=== PATIENT | male | born 1960 | race African-American/Black ===

== ENCOUNTER 2019-03-27 15:21 | Inpatient (IN) ==
[~2019-03-27 15:21] MED LIST: POTASSIUM CHLORIDE 20 MEQ/SWI 20 MEQ/100 ML IVPB IV SCH
[2019-03-27] MEDS ORDERED: NS 1,000 ML IV PRN (15:36)
--- NOTE | 2019-03-27 15:54 | EKG Report ---
Test Performed on : 03/27/2019 3:49:29 PM Test Reason : stroke like symptoms Blood Pressure : / mmHG Vent. Rate : 146 BPM Atrial Rate : 156 BPM P-R Int : 000 ms QRS Dur : 084 ms QT Int : 288 ms P-R-T Axes : 000 009 060 degrees QTc Int : 448 ms Atrial fibrillation. with rapid ventricular response. Anterior infarct (cited on or before 21-JAN-2018) Abnormal ECG When compared with ECG of 18-NOV-2018 15:05, Atrial fibrillation. has replaced Sinus rhythm. Vent. rate has increased BY [address] now depressed in Lateral leads Nonspecific T wave abnormality, improved in Lateral leads Unconfirmed Result
[2019-03-27] MEDS ORDERED: CARDIZEM IV ONE (15:55)
--- NOTE | 2019-03-27 16:52 | Diag Imaging Result Doc PS360 ---
EXAM: CHEST-PORTABLE HISTORY: stroke like symptoms TECHNIQUE: Single view COMPARISON: 01/21/2018 FINDINGS: The lungs are well expanded. The heart is not enlarged. The vessels are not distended. There are no infiltrates. No effusion identified. IMPRESSION: Negative exam. Electronically signed by Nathaniel Trujillo 03/27/2019 4:49 PM
[2019-03-27 17:07] LABS: INR 2.26; PROTIME 26.3 Seconds (11.0-16.0)
[2019-03-27 17:08] LABS: PTT 49.2 Seconds (22.3-41.8)
[2019-03-27 17:19] LABS: URINE SOURCE CLEAN CATCH
[2019-03-27 17:24] LABS: UR EPITHELIAL CELLS <10 /HPF (<10); URINE BACTERIA NEGATIVE /HPF; URINE RBC <10 /HPF (<10); URINE WBC <10 /HPF (<10)
[2019-03-27 17:31] LABS: INFLUENZA A NEGATIVE (NEGATIVE); INFLUENZA B NEGATIVE (NEGATIVE)
[2019-03-27] MEDS ORDERED: SOLU-MEDROL IV ONE (17:32)
[2019-03-27] MEDS ORDERED: ROCEPHIN 1 GM in NS 50 ML IV ONE (17:32)
[2019-03-27 17:36] LABS: BASO# 0.04 X1000 (0.0-0.2); BASO% 0.2 % (0.0-0.8); EOS% 0.5 % (0.0-10.0); HEMATOCRIT 41.4 % (42.0-52.0); HEMOGLOBIN 13.7 g/dL (14.0-18.0); IMM GRAN# 0.06 X1000 (0.0-0.04); IMM GRAN% 0.3 % (0.0-0.5); LYMPH# 0.98 X1000 (1.2-3.4); LYMPH% 5.3 % (20.5-51.1); MCH 29.5 PG (27-31); MCHC 33.1 g/dL (33-37); MONO# 0.98 X1000 (0.11-0.59); MONO% 5.3 % (1.7-9.3); MPV 11.1 FL (7.4-10.4); NEUT# 16.38 X1000 (1.4-6.5); NEUT% 88.4 % (42.2-75.2); PLT 354 X1000 (130-400); RBC 4.65 XMIL (4.7-6.1); RDW 13.7 % (11.5-14.5); WBC 18.54 X1000 (4.8-10.8)
[2019-03-27 17:37] LABS: COLOR YELLOW; TURBIDITY URINE CLEAR (CLEAR)
[2019-03-27 17:38] LABS: BILIRUBIN URINE NEGATIVE (NEGATIVE); BLOOD URINE NEGATIVE (NEGATIVE); GLUCOSE URINE 70 mg/dL (NEGATIVE); KETONE URINE 80 mg/dL (NEGATIVE); LEUKOCYTES URINE NEGATIVE (NEGATIVE); NITRITE URINE NEGATIVE (NEGATIVE); PH URINE 6.5; PROTEIN URINE 300 mg/dL (NEGATIVE); SP GRAVITY URINE 1.018; UROBILINOGEN URINE NORMAL (NORMAL)
[2019-03-27 17:41] LABS: ESTIMATED GFR > 60
[2019-03-27 17:44] LABS: UR AMPHETAMINES QUAL NONE DETECTED (NONE DETECT); UR BARBITUATES QUAL NONE DETECTED (NONE DETECT); UR BENZODIAZEPIN QUAL NONE DETECTED (NONE DETECT); UR CANNABINOIDS QUAL NONE DETECTED (NONE DETECT); UR COCAINE QUAL NONE DETECTED (NONE DETECT); UR METHADONE QUAL NONE DETECTED (NONE DETECT); UR METHAMPHETAMINE QUAL NONE DETECTED (NONE DETECT); UR OPIATES QUAL PRESUMPTIVE POSITIVE (NONE DETECT); UR OXYCODONE QUAL NONE DETECTED (NONE DETECT); UR PCP QUAL NONE DETECTED (NONE DETECT); UR PROPOXYPHENE QUAL NONE DETECTED (NONE DETECT); UR TCA QUAL NONE DETECTED (NONE DETECT)
[2019-03-27] MEDS ORDERED: POTASSIUM CHLORIDE 10 MEQ/SWI 10 MEQ/100 ML IVPB IV ONE (17:46)
[2019-03-27 17:47] LABS: AGAP 20; ALBUMIN 4.3 g/dL (3.5-5.0); ALKALINE PHOSPHATASE 82 U/L (32-122); BUN 12 mg/dL (8-22); CALCIUM 9.3 mg/dL (8.8-10.2); CHLORIDE 100 mmol/L (98-107); COSMO 293; CREATININE 1.1 mg/dL (0.7-1.2); GLUCOSE 187 mg/dL (70-104); GOT 14 U/L (10-34); GPT 8 U/L (10-44); POTASSIUM 2.4 mmol/L (3.5-5.1); SODIUM 145 mmol/L (136-145); TCO2 24 mmol/L (25-35); TOTAL PROTEIN 7.1 g/dL (6.3-8.3)
[2019-03-27] MEDS ORDERED: KLOR-CON PO ONE (17:48)
[2019-03-27] MEDS ORDERED: ROBITUSSIN-AC PO ONE (18:01)
[2019-03-27] MEDS ORDERED: NS 500 ML ONE (18:19)
[2019-03-27] MEDS ORDERED: NS 500 ML IV ONE (18:21)
--- NOTE | 2019-03-27 18:29 | EKG Report ---
Test Performed on : 03/27/2019 4:08:16 PM Test Reason : repeat Blood Pressure : / mmHG Vent. Rate : 066 BPM Atrial Rate : 066 BPM P-R Int : 152 ms QRS Dur : 092 ms QT Int : 420 ms P-R-T Axes : 035 042 040 degrees QTc Int : 440 ms Normal sinus rhythm. Normal ECG When compared with ECG of 27-MAR-2019 15:49, (Unconfirmed) Sinus rhythm. has replaced Atrial fibrillation. Vent. rate has decreased BY 80 BPM Criteria for Anterior infarct are no longer present ST no longer depressed in Inferior leads Nonspecific T wave abnormality no longer evident in Inferior leads Unconfirmed Result
--- NOTE | 2019-03-27 18:29 | EKG Report ---
Test Performed on : 03/27/2019 5:30:45 PM Test Reason : repeat Blood Pressure : / mmHG Vent. Rate : 114 BPM Atrial Rate : 114 BPM P-R Int : 160 ms QRS Dur : 076 ms QT Int : 340 ms P-R-T Axes : 062 -32 102 degrees QTc Int : 468 ms Sinus tachycardia. Left axis deviation Inferior infarct , age undetermined Anterior infarct , age undetermined Abnormal ECG When compared with ECG of 27-MAR-2019 16:08, (Unconfirmed) Significant changes have occurred Unconfirmed Result
[2019-03-27] MEDS ORDERED: POTASSIUM CHLORIDE 40 MEQ/SWI 40 MEQ/100 ML IVPB IV SCH (20:00)
[2019-03-27] MEDS ORDERED: APRESOLINE IV PRN (20:35)
[2019-03-27] MEDS ORDERED: HUMULIN R (PARKWAY) SUBQ SCH (21:00)
[2019-03-27] MEDS: POTASSIUM CHLORIDE 20 MEQ/SWI 20 MEQ/100 ML IVPB IV SCH (22:36)
[2019-03-27] MEDS ORDERED: PNEUMOVAX 23 IM ONE (23:52)
[2019-03-27] MEDS ORDERED: FLU VACCINE IM ONE (23:52)
[2019-03-28] MEDS: POTASSIUM CHLORIDE 20 MEQ/SWI 20 MEQ/100 ML IVPB IV SCH (00:54)
[2019-03-28 07:55] LABS: BASO# 0.01 X1000 (0.0-0.2); BASO% 0.1 % (0.0-0.8); HEMATOCRIT 38.7 % (42.0-52.0); HEMOGLOBIN 12.7 g/dL (14.0-18.0); IMM GRAN# 0.01 X1000 (0.0-0.04); IMM GRAN% 0.1 % (0.0-0.5); MCH 29.6 PG (27-31); MCHC 32.8 g/dL (33-37); MCV 90.2 FL (81-99); MONO% 2.3 % (1.7-9.3); MPV 11.5 FL (7.4-10.4); NEUT# 7.81 X1000 (1.4-6.5); NEUT% 89.5 % (42.2-75.2); PLT 278 X1000 (130-400); RBC 4.29 XMIL (4.7-6.1); RDW 13.9 % (11.5-14.5); WBC 8.73 X1000 (4.8-10.8)
[2019-03-28 08:10] LABS: AGAP 13; BUN 17 mg/dL (8-22); CALCIUM 8.8 mg/dL (8.8-10.2); CHLORIDE 104 mmol/L (98-107); COSMO 292; ESTIMATED GFR > 60; GLUCOSE 222 mg/dL (70-104); MAGNESIUM 1.6 mg/dL (1.5-2.7); POTASSIUM 3.3 mmol/L (3.5-5.1); SODIUM 142 mmol/L (136-145); TCO2 25 mmol/L (25-35)
[2019-03-28] MEDS ORDERED: KLOR-CON PO ONE (08:45)
[2019-03-28] MEDS ORDERED: MAGNESIUM SULFATE 1 GM/D5W 1 GM/100 ML IVPB IV ONE (08:46)
[2019-03-28] MEDS ORDERED: TYLENOL PO PRN (08:50)
[2019-03-28] MEDS ORDERED: ZOFRAN IV PRN (08:50)
[2019-03-28] MEDS ORDERED: GLUCOPHAGE PO SCH (09:00)
[2019-03-28] MEDS ORDERED: LOPRESSOR PO SCH (09:00)
[2019-03-28] MEDS ORDERED: POTASSIUM CHLORIDE 20 MEQ/SWI 20 MEQ/100 ML IVPB IV SCH (09:00)
[2019-03-28] MEDS: KLOR-CON PO SCH (09:36)
[2019-03-28] MEDS: HYGROTON PO SCH (09:37)
[2019-03-28] MEDS: PRILOSEC PO SCH (09:37)
[2019-03-28] MEDS: HUMULIN R (PARKWAY) SUBQ SCH ×4 (09:39→23:02)
[2019-03-28 10:23] LABS: HEMOGLOBIN A1C 6.4 % (4.8-6.0)
--- NOTE | 2019-03-28 10:51 | Diag Imaging Result Doc PS360 ---
EXAM: ABDOMEN FLAT/UPRIGHT - 03/28/2019 HISTORY: nausea/vomiting TECHNIQUE: Supine and upright abdomen COMPARISON: None. FINDINGS: There are gas and retained fecal debris visible in mostly nondistended colon. There is gas visible within a couple nondistended to slightly distended small bowel loops on the left. There is no free air identified. IMPRESSION: Nonspecific bowel gas pattern. Electronically signed by Tk Whipple 03/28/2019 10:49 AM
[2019-03-28 10:56] LABS: FREE T4 1.41 ng/dL (0.93-1.70); TSH 0.45 uIUmL (0.27-4.20)
[2019-03-28] MEDS ORDERED: NORCO-7.5 PO PRN (11:02)
[2019-03-28] MEDS: APRESOLINE PO SCH ×2 (13:04→20:43)
--- NOTE | 2019-03-28 16:24 | EKG Report ---
Test Performed on : 03/28/2019 3:27:06 PM Test Reason : reevaluate rym Blood Pressure : / mmHG Vent. Rate : 083 BPM Atrial Rate : 083 BPM P-R Int : 166 ms QRS Dur : 078 ms QT Int : 396 ms P-R-T Axes : 054 030 -34 degrees QTc Int : 465 ms Normal sinus rhythm. Nonspecific T wave abnormality Prolonged QT Abnormal ECG When compared with ECG of 27-MAR-2019 17:30, (Unconfirmed) Criteria for Anterior infarct are no longer present Criteria for Inferior infarct are no longer present ST no longer depressed in Lateral leads T wave inversion now evident in Inferior leads Inverted T waves have replaced nonspecific T wave abnormality in Lateral leads Confirmed by Bala Gasca MD ([id number]) on 04/01/2019 6:31:55 AM
[2019-03-28] MEDS ORDERED: XARELTO PO SCH (17:00)
[2019-03-28] MEDS: BETAPACE PO SCH (20:43)
--- NOTE | 2019-03-28 21:14 | HISTORY AND PHYSICAL ---
PRIMARY CARE PROVIDER: Nba Crum DO CHIEF COMPLAINT: Chest pain. HISTORY OF PRESENT ILLNESS: Mr. Yi Briseno is a 58-year-old male with a medical history of paroxysmal atrial fibrillation. He states that yesterday around 11 a.m. he developed a sudden onset of chest pain, had some nausea and vomiting with it. He presented to the emergency department with these complaints. He was found to be in atrial fibrillation with RVR. He was going to receive Cardizem but the atrial fibrillation with RVR actually resolved. Nausea and vomiting has also improved, but he is hypokalemic with it. White blood cell count went up as well, but that has resolved, too. He states that yesterday morning he took his medications on an empty stomach which include sotalol. He got sick to his stomach and threw up, and it was after that he developed the chest pain. Currently home medications have been reconciled and resumed, including the sotalol. He is not complaining of any nausea. He did state that he had some yellow phlegm, but no fever. Otherwise no other complaint. PAST MEDICAL HISTORY: 1. Hypertension. 2. Diabetes mellitus type 2. 3. GERD. 4. Paroxysmal atrial fibrillation. PAST SURGICAL HISTORY: 1. Appendectomy. 2. Left knee surgery. 3. Bilateral rotator cuff repair. SOCIAL HISTORY: Denies tobacco. He states he drinks alcohol on the weekends, but no illicit drug use. On old records it says he uses marijuana occasionally. He denies this at this time. He lives with his , has adult children. He works for [email or web address]. FAMILY HISTORY: Mother, asthma. Father, no known medical conditions. ALLERGIES: No known drug allergies. HOME MEDICATIONS: 1. Hydralazine 100 mg p.o. twice a day. 2. Chlorthalidone 50 mg p.o. daily. 3. Metformin 1000 mg p.o. twice daily. 4. Hydrocodone 1 tablet p.o. every 4-8 hours p.r.n. 5. Potassium chloride 20 mEq p.o. daily. 6. Sotalol 40 mg p.o. twice daily. 7. Xarelto 20 mg p.o. daily. REVIEW OF SYSTEMS: Fourteen-point review of systems are complete and all were negative except for those mentioned above in HPI. PHYSICAL EXAMINATION: VITAL SIGNS: Temperature 98.3 degrees, heart rate 75, respiratory rate 20, blood pressure 183/95, O2 saturation 98% on room air. GENERAL: Mr. Yi Briseno is a 58-year-old male. He is in no acute distress. He is able to answer questions appropriately. HEENT: Atraumatic, normocephalic. Pupils equal, round and reactive to light. Extraocular movements intact. Mucous membranes are moist. NECK: Trachea midline. CARDIOVASCULAR: S1, S2. Regular rate and rhythm. No rubs, gallops or murmurs. No lower extremity edema. Dorsalis and radial pulses +2. Negative JVD or carotid bruits. PULMONARY: Clear to auscultate, bilateral breath sounds. No accessory muscle use or work of breathing noted. GASTROINTESTINAL: Soft, nontender, nondistended. Positive bowel sounds x4. EXTREMITIES: Moves all extremities equally. Full range of motion. NEUROLOGIC: A and O x3. Follows commands. Sensory is intact. SKIN: Warm, dry, intact. LABORATORY DATA: White blood cells 18,000, now down to 8000. Hemoglobin 12, hematocrit 38, platelet count 278,000. Sodium 142. Initially potassium 2.4, it is up to 3.3. BUN 17, creatinine 1.0, glucose 222. Hemoglobin A1c is 6.4. Calcium 8.8, magnesium 1.6. Bilirubin 0.70, AST 14, ALT 8. Troponin 48. CRP 12. ProBNP 939. Triglycerides 35, total cholesterol 157. TSH 0.45, free T4 is 1.41. Urinalysis: Protein 300, 70 glucose, 80 ketones, otherwise negative. Urine drug screen: Positive opiates. Flu negative. DIAGNOSTIC DATA: Chest x-ray: Negative exam. There are 3 EKGs. These were all from yesterday. First one: Atrial fibrillation with RVR, rate 146. Second one: Normal sinus rhythm, rate 66, QTc is 440. Third one: Sinus tachycardia, rate 114. There were not any EKGs for today. Abdominal x-ray: Nonspecific bowel gas pattern. ASSESSMENT AND PLAN: 1. Atypical chest pain, which was caused from atrial fibrillation with rapid ventricular response. The patient has been resumed on the sotalol. Apparently, he threw up his morning medications and also became hypokalemic, causing him to be more at risk for atrial fibrillation with rapid ventricular response, as he has a history of paroxysmal atrial fibrillation. He has since converted back to normal sinus rhythm. Sotalol continued, Xarelto continued. 2. Hypokalemia. It is improving with potassium supplementation and magnesium supplementation. 3. Hypertension. Home medications resumed. PRN medications ordered. 4. Diabetes mellitus type 2. We will do pattern blood glucoses and sliding scale insulin. 5. Gastroesophageal reflux disease, on Prilosec. 6. Deep venous thrombosis prophylaxis. He is on Xarelto. Dictated by DELANEY Carver for Lokesh Ac MD cc: DELANEY Carver MD
--- NOTE | 2019-03-28 22:37 | HISTORY AND PHYSICAL ---
ADDENDUM: Patient seen and examined by myself. Full note dictated discussed with nurse practitioner. Patient presented to the hospital with chest pain, shortness of breath. He was noted to have a white count elevated at 18. Sodium at 143, potassium low at 2.4. Magnesium also was low. We are going to admit him to the hospital. Replace his electrolytes, follows his heart symptoms. Further orders as needed. Please see full note. cc: Lokesh Ac MD
[2019-03-29] MEDS: PRILOSEC PO SCH ×2 (05:07→08:44)
[2019-03-29 06:16] LABS: BASO# 0.04 X1000 (0.0-0.2); BASO% 0.3 % (0.0-0.8); EOS# 0.11 X1000 (0.0-0.7); EOS% 0.7 % (0.0-10.0); HEMATOCRIT 37.7 % (42.0-52.0); HEMOGLOBIN 11.9 g/dL (14.0-18.0); IMM GRAN# 0.03 X1000 (0.0-0.04); IMM GRAN% 0.2 % (0.0-0.5); LYMPH# 2.35 X1000 (1.2-3.4); LYMPH% 15.1 % (20.5-51.1); MCH 28.5 PG (27-31); MCHC 31.6 g/dL (33-37); MCV 90.2 FL (81-99); MONO% 7.1 % (1.7-9.3); MPV 11.5 FL (7.4-10.4); NEUT# 11.97 X1000 (1.4-6.5); NEUT% 76.6 % (42.2-75.2); PLT 300 X1000 (130-400); RBC 4.18 XMIL (4.7-6.1); RDW 14.1 % (11.5-14.5)
[2019-03-29 06:56] LABS: AGAP 12; ALBUMIN 3.4 g/dL (3.5-5.0); ALKALINE PHOSPHATASE 76 U/L (32-122); BUN 18 mg/dL (8-22); CALCIUM 8.9 mg/dL (8.8-10.2); CHLORIDE 102 mmol/L (98-107); COSMO 286; CREATININE 0.9 mg/dL (0.7-1.2); ESTIMATED GFR > 60; GLUCOSE 152 mg/dL (70-104); GOT 11 U/L (10-34); GPT 6 U/L (10-44); MAGNESIUM 1.7 mg/dL (1.5-2.7); POTASSIUM 2.6 mmol/L (3.5-5.1); SODIUM 141 mmol/L (136-145); TCO2 27 mmol/L (25-35); TOTAL PROTEIN 6.1 g/dL (6.3-8.3)
[2019-03-29] MEDS: HUMULIN R (PARKWAY) SUBQ SCH (08:45)
[2019-03-29] MEDS: APRESOLINE PO SCH (08:46)
[2019-03-29] MEDS: KLOR-CON PO SCH (08:46)
[2019-03-29] MEDS: HYGROTON PO SCH (08:46)
[2019-03-29] MEDS: BETAPACE PO SCH (08:46)
[2019-03-29] MEDS ORDERED: PRINIVIL PO SCH (09:00)
[2019-03-29] MEDS ORDERED: KLOR-CON PO SCH (09:00)
[2019-03-29 09:01] VITALS: BP 176/90
--- NOTE | 2019-03-29 21:49 | DISCHARGE SUMMARY ---
ADMISSION DATE: 03/27/2019 DISCHARGE DATE: 03/29/2019 DISCHARGE DIAGNOSES: 1. Chest pain, resolved. 2. Type 2 diabetes, stable. 3. Leukocytosis, stable. 4. Hypokalemia, improved although it was still 2.6 on discharge. 5. Hypertension. 6. Diabetes. CONSULTATIONS: None. PROCEDURES: None. BRIEF HOSPITAL COURSE: The patient is a 58-year-old male who presented to the hospital with chest pain. Thankfully, he ruled out for an [place]. He was restarted on his home medications. His atrial fibrillation did not have any issues while he was in the hospital. He did have low potassium and an elevated blood pressure for which potassium was added as well as lisinopril was added. On discharge, he is awake, alert. He is in no distress and therefore he will be discharged home. DISPOSITION: Patient will continue his home medications, hydralazine, chlorthalidone, metformin, hydrocodone, potassium, sotalol, Xarelto with the addition of lisinopril 20. He will follow up this week with his primary care to have his labs and blood pressures rechecked. cc: Lokesh Ac MD
== END 2019-03-29 12:13 | disposition home or self-care (01) | DRG 310 ==
LOC: P.ED 15:21 → P.MEDSURG 15:21 → SUATTDRO 19:39 → OBSVTOIN 19:39
PROVIDERS: ATTEND Family Medicine

== ENCOUNTER 2019-05-02 22:47 | Inpatient (IN) ==
[2019-05-02] MEDS ORDERED: CARDIZEM IV ONE ×2 (22:49→23:43)
[2019-05-02 23:40] LABS: BASO# 0.03 X1000 (0.0-0.2); BASO% 0.3 % (0.0-0.8); EOS# 0.22 X1000 (0.0-0.7); EOS% 2.2 % (0.0-10.0); HEMATOCRIT 39.5 % (42.0-52.0); HEMOGLOBIN 12.7 g/dL (14.0-18.0); IMM GRAN# 0.01 X1000 (0.0-0.04); IMM GRAN% 0.1 % (0.0-0.5); LYMPH# 1.31 X1000 (1.2-3.4); MCH 28.6 PG (27-31); MCHC 32.2 g/dL (33-37); MONO# 0.93 X1000 (0.11-0.59); MONO% 9.2 % (1.7-9.3); MPV 11.3 FL (7.4-10.4); NEUT# 7.58 X1000 (1.4-6.5); NEUT% 75.2 % (42.2-75.2); PLT 349 X1000 (130-400); RBC 4.44 XMIL (4.7-6.1); RDW 13.5 % (11.5-14.5); WBC 10.08 X1000 (4.8-10.8)
--- NOTE | 2019-05-02 23:40 | PROVIDER DOCUMENTATION ---
This chart was entered by Lilly Muniz Scribe, acting as scribe for Eliel Rdz MD. HPI-Chest Pain - General Stated Complaint: tachycardia Time Seen by Provider: 05/02/19 22:47 Source: patient, EMS Allergies/Adverse Reactions: Patient Allergies Allergy/AdvReac Type Severity Reaction Status Date / Time No Known Allergies Allergy Verified 03/27/19 16:35 Home Medications: Home Medication List Medication Instructions Recorded Confirmed Last Taken Type Chlorthalidone 50 mg PO DAILY 11/18/18 03/27/19 01/14/19 08:30 History Hydralazine [Apresoline] 100 mg PO BID 11/18/18 03/28/19 01/14/19 08:30 History Metformin [Glucophage] 1,000 mg PO BID 11/18/18 03/27/19 01/14/19 08:30 History Potassium Chloride E.r. 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 pt sts these symptoms have happened previously. pt has hx of afib w/rvr. Severity in ED: moderate Onset/Duration: just prior to arrival, 1/2 hour ago Timing: still present Context/Activities at Onset: reports: none Modifying Factors: improves with: nothing Associated Symptoms: reports: denies symptoms Similar Symptoms Previously?: Yes Review of Systems - Adult - REVIEW OF SYSTEMS - ADULT Constitutional: reports: no symptoms reported. denies: fever, fatique, night sweats Eyes: reports: no symptoms reported Ears, Nose, Mouth & Throat: reports: no symptoms reported Cardiovascular: reports: see HPI, chest pain, irregular heart rate. denies: heart murmur, poor circulation, syncope Respiratory: reports: no symptoms reported Gastrointestinal: reports: no symptoms reported Genitourinary: reports: no symptoms reported Musculoskeletal: reports: no symptoms reported Integumentary: reports: no symptoms reported Neurological: reports: no symptoms reported Psychiatric: reports: no symptoms reported Endocrine: reports: no symptoms reported Hematologic/Lymphatic: reports: no symptoms reported Allergic/Immunologic: reports: no symptoms reported All Other Systems: Reviewed and Negative Past History - Adult - PAST MEDICAL HISTORY-ADULT Review of Records: reports: Nursing Assessment Review, Medications Reviewed, Social history reviewed & non-contributory. Major Childhood Illnesses: reports: denies history Cardiovascular: reports: A-Fib, HTN Respiratory: reports: denies history Gastrointestinal: reports: denies history Obstetrical/Gynecological: reports: denies history Genitourinary: reports: denies history Musculoskeletal: reports: denies history Neurological: reports: denies history Endocrine/Immune: reports: Diabetes Other Conditions: reports: denies history - PRIOR SURGERIES/PROCEDURES Surgical/Procedure History: reports: joint replacement, other - IMMUNIZATION STATUS Childhood Immunizations: See Nurse Assessment Flu Vaccine: See Nurse Assessment - FAMILY HISTORY Family History: reviewed, not pertinent - SOCIAL HISTORY Smoking: non-smoker Substance Use: alcohol Physical Exam-General - PHYSICAL EXAM-ADULT Initial Vital Signs Reviewed: Yes - CONSTITUTIONAL General Appearance: alert, mild distress, obese. negative: cachetic, lethargic, slow to respond - EYES Eyes: PERRL/EOMI - HEAD, EARS, NOSE, MOUTH & THROAT HENMT: normocephalic/atraumatic, moist mucous membranes - NECK Neck: non-tender, full range of motion, supple, normal inspection - RESPIRATORY Respiratory: chest non-tender, lungs clear, normal breath sounds - CARDIOVASCULAR Cardiovascular: no edema, no gallop, no JVD, no murmur, tachycardia, irregularly irregular. negative: regular rate, rhythm, bradycardia, extra beats, friction rub - GASTROINTESTINAL (ABDOMEN) Abdominal Exam: normal bowel sounds, non tender, soft - MUSCULOSKELETAL Back Exam: normal inspection Extremity: normal range of motion, non-tender, normal inspection - SKIN Integumentary: normal color, normal turgor, warm/dry - NEUROLOGIC Neurologic: grossly normal, no motor/sensory deficits - PSYCHIATRIC Psych/Mental Status: normal mood/affect, normal thought content, normal thought process, oriented x 3 Progress - PLAN OF CARE/RESULTS Progress/Plan/Lab Results: Vital Signs - 8 hr 05/02/19 22:53 05/02/19 23:01 05/03/19 00:00 Temperature 98.4 F Pulse Rate 178 H 102 H 156 H Respiratory Rate 20 20 20 Blood Pressure 169/135 180/93 156/78 O2 Sat by Pulse Oximetry 100 99 100 Laboratory Results - last 24 hr 05/02/19 05/02/19 05/02/19 23:16 23:16 23:16 WBC 10.08 RBC 4.44 L Hgb 12.7 L Hct 39.5 L MCV 89.0 MCH 28.6 MCHC 32.2 L RDW Std Deviation 13.5 Plt Count 349 MPV 11.3 H Immature Gran % (Auto) 0.1 Neut % (Auto) 75.2 Lymph % (Auto) 13.0 L [place] % (Auto) 9.2 Eos % (Auto) 2.2 Baso % (Auto) 0.3 Immature Gran # (Auto) 0.01 Neut # (Auto) 7.58 H Lymph # (Auto) 1.31 [place] # (Auto) 0.93 H Eos # (Auto) 0.22 Baso # (Auto) 0.03 Sodium 145 Potassium 2.9 L Chloride 105 Carbon Dioxide 24 L Anion Gap 16 BUN 14 Creatinine 0.9 Estimated GFR/1.73 m2 > 60 BUN/Creatinine Ratio 16 Glucose 202 H Calculated Osmolality 295 Calcium 9.3 Magnesium Total Bilirubin 0.20 AST 10 ALT 7 L Alkaline Phosphatase 97 Creatine Kinase 73 Troponin T High Sens Total Protein 6.9 Albumin 4.1 Globulin 3.0 Albumin/Globulin Ratio 1.0 05/02/19 05/02/19 23:16 23:16 WBC RBC Hgb Hct MCV MCH MCHC RDW Std Deviation Plt Count MPV Immature Gran % (Auto) Neut % (Auto) Lymph % (Auto) [place] % (Auto) Eos % (Auto) Baso % (Auto) Immature Gran # (Auto) Neut # (Auto) Lymph # (Auto) [place] # (Auto) Eos # (Auto) Baso # (Auto) Sodium Potassium Chloride Carbon Dioxide Anion Gap BUN Creatinine Estimated GFR/1.73 m2 BUN/Creatinine Ratio Glucose Calculated Osmolality Calcium Magnesium 1.9 Total Bilirubin AST ALT Alkaline Phosphatase Creatine Kinase Troponin T High Sens 27 H Total Protein Albumin Globulin Albumin/Globulin Ratio Orders Category Date Time Status Admit - [facility] Routine AdmDCTranf 05/03/19 00:28 Active Cardiac Monitoring DIRECTED Care 05/02/19 22:48 Active Resuscitation Status Routine Care 05/03/19 00:29 Ordered Saline Loc DIRECTED Care 05/03/19 00:29 Active Vital Signs Order Q 4-HR ASSESS Care 05/03/19 00:29 Active Z-Document. for Tele Applied ORDERED Care 05/03/19 00:29 Active NPO Diet 05/03/19 00:30 Active CHEST-PORTABLE [RAD] Stat Exams 05/02/19 22:49 Taken CBC WITH ELECTRONIC DIFF [HEME] Stat Lab 05/02/19 23:16 Completed CK PROFILE [SP CHEM] Stat Lab 05/02/19 23:16 Completed CMP [COMPREHENSIVE METABOLIC PANEL] [CHEM] Stat Lab 05/02/19 23:16 Completed MAGNESIUM [CHEM] Stat Lab 05/02/19 23:16 Completed TROPONIN T HIGH SENSITIVITY Stat Lab 05/02/19 23:16 Completed 0.9% Sodium Chloride Inj [Ns] 1,000 ml Med 05/03/19 00:29 Active IV 100 mls/hr Diltiazem 100 mg/Ns [Cardizem 100 mg/Ns] Med 05/02/19 23:45 Active 100 mg in 100 ml IV As Directed mls/hr Diltiazem [Cardizem] Med 05/02/19 23:43 Discontinued 10 mg IV NOW ONE Diltiazem [Cardizem] Med 05/02/19 22:49 Discontinued 15 mg IV NOW ONE Potassium Chloride 20 Meq/Swi Med 05/03/19 00:04 Active 20 meq in 100 ml IV ONCE Oxygen Device Stat Oth 05/02/19 22:49 Active Telemetry [OM.EQ] Routine Oth 05/03/19 00:29 Active EKG [EKG] Stat Ther 05/02/19 22:48 Ordered Transfer/Admit Order [TRANSFER] Routine Transfer 05/03/19 00:31 Ordered Result Diagrams: 05/02/19 23:16 05/02/19 23:16 - REASSESSMENT Reassessment #1 Time Reassessed: 23:15 Status: improving Reassessment Comment: heart rate has normalized Reassessment #2 Time Reassessed: 23:45 Status: worsening Reassessment Comment: heart rate is now over 130, 10mg IV cardizem drip ordered - EKG 1 Time of EKG reading by physician:: 22:53 EKG Read and Signed by:: Eliel Rdz EKG Interpretation (*Must complete 3 of following elements*): Abnormal Rate: 172 Rhythm: SVT [place]: normal QRS: normal ST Wave: non-specific ST changes (ST & T wave abn) 2 Time of EKG reading by physician:: 22:58 EKG Read and Signed by:: Eliel Rdz EKG Interpretation (*Must complete 3 of following elements*): Abnormal Rate: 99 Rhythm: arib w/ PVC or PACs [place]: normal QRS: normal [place] Interval: normal ST Wave: normal Comments: poss anterior infarct, age undetermined - CONSULTS/PCP/HOSPITALIST Notification #1 *Consult/PCP/Hospitalist*: Dr. Ac Time Discussed: 00:06 Reason/Comments: admit to ICU at [facility], patient requires cardizem drip Consult Disposition: Admit #2 Consult: Dr. Caraballo, hospitalist Reason/Comments: admit to PVC Consult Disposition: Admit Departure - Departure Date of Disposition Decision: 05/03/19 Time of Disposition Decision: 00:05 DIAGNOSIS: Atrial fibrillation with RVR, Hypokalemia Disposition: ADMITTED INPATIENT 09 Certified Medical Emergency: Emergent Condition: Stable Referrals and Follow-Ups: None,PCP [Primary Care Provider] - - Critical Care Note This patient required my direct & personal management of CC.: Yes Attestation - Physician/ RAI Attestation Patient care was provided by Advanced Practice Provider:: No The physician spent face to face time with patient:: Yes Advanced Practice Provider documentation review:: Supervising physician onsite and consulted in the evaluation and care of this patient. The physician did have a face to face encounter with the patient. This chart was documented by the indicated scribe, (Lilly Muniz Scribe) and accurately reflects the services I performed and decisions made by me, Eliel Rdz MD, as attested by the provider's signature.
[2019-05-02] MEDS ORDERED: CARDIZEM 100 MG/NS 100 MG/100 ML IVPB IV SCH (23:45)
[2019-05-02 23:51] LABS: AGAP 16; ALBUMIN 4.1 g/dL (3.5-5.0); ALKALINE PHOSPHATASE 97 U/L (32-122); BUN 14 mg/dL (8-22); CALCIUM 9.3 mg/dL (8.8-10.2); CHLORIDE 105 mmol/L (98-107); COSMO 295; CREATININE 0.9 mg/dL (0.7-1.2); ESTIMATED GFR > 60; GLUCOSE 202 mg/dL (70-104); GOT 10 U/L (10-34); GPT 7 U/L (10-44); POTASSIUM 2.9 mmol/L (3.5-5.1); SODIUM 145 mmol/L (136-145); TCO2 24 mmol/L (25-35); TOTAL PROTEIN 6.9 g/dL (6.3-8.3)
[2019-05-03] MEDS ORDERED: POTASSIUM CHLORIDE 20 MEQ/SWI 20 MEQ/100 ML IVPB IV ONE (00:04)
[2019-05-03] MEDS ORDERED: NS 1,000 ML IV ONE (00:29)
[2019-05-03] MEDS ORDERED: KLOR-CON PO ONE ×3 (00:51→15:04)
--- NOTE | 2019-05-03 01:41 | ED EKG INTERP ---
This chart was entered by Lilly Muniz Scribe, acting as scribe for Eliel Rdz MD. EKG Interpretation - EKG Time of EKG reading by physician:: 01:27 EKG Read and Signed by:: Eliel Rdz EKG Interpretation (*Must complete 3 of following elements*): Abnormal Rate: 90 Rhythm: SR w/ 1st degree AV block w/ pSVT and freq PVCs [place]: normal QRS: normal ST Wave: normal Prior EKG Comparison: changes noted Comments: inferior infarct, age undetermined. anterior infarct, age undet ermined. Attestation - Physician/ RAI Attestation Patient care was provided by Advanced Practice Provider:: No The physician spent face to face time with patient:: Yes Advanced Practice Provider documentation review:: Supervising physician onsite and consulted in the evaluation and care of this patient. The physician did have a face to face encounter with the patient. This chart was documented by the indicated scribe, (Lilly Muniz Scribe) and accurately reflects the services I performed and decisions made by me, Eliel Rdz MD, as attested by the provider's signature.
[2019-05-03 03:14] LABS: INR 1.11; PROTIME 14.9 Seconds (11.0-16.0)
[2019-05-03 03:15] LABS: PTT 42.3 Seconds (22.3-41.8)
--- NOTE | 2019-05-03 03:37 | EKG Report ---
Test Performed on : 05/02/2019 10:52:36 PM Test Reason : a-fib with RVR Blood Pressure : / mmHG Vent. Rate : 172 BPM Atrial Rate : 174 BPM P-R Int : 000 ms QRS Dur : 080 ms QT Int : 254 ms P-R-T Axes : 000 006 154 degrees QTc Int : 429 ms Supraventricular tachycardia. Nonspecific ST and T wave abnormality Abnormal ECG When compared with ECG of 28-MAR-2019 15:27, Vent. rate has increased BY [address] now depressed in Lateral leads Unconfirmed Result
[2019-05-03] MEDS ORDERED: POTASSIUM CHLORIDE 10 MEQ/SWI 10 MEQ/100 ML IVPB IV ONE (03:39)
--- NOTE | 2019-05-03 04:54 | HISTORY AND PHYSICAL ---
Addendum HISTORY: Mr. Briseno come in today complaining of palpitations, shortness of breath, and some lightheadedness while he was at work today. On arrival to [place], his heart rates were in the 140 to 150 range. He was given Cardizem IV push which brought it down some, and was maintained on Cardizem drip and then transferred to our service. He denies any chest pain or antecedent leg swelling or redness. No fever, chills, or cough. LABORATORY: Lab work shows a potassium of 2.9 and glucose is 202. Rest of his labs were essentially unremarkable. His EKG with atrial fibrillation with poor R-wave progression, left axis deviation. Nonspecific ST-wave changes in the high lateral leads, especially. Chest film poor inspiratory effort. Fill of end on vessels. Very difficult to comment. He has borderline cardiomegaly. PHYSICAL EXAMINATION: His exam is notable for irregularly irregular heart rhythm. Trace edema in his lower extremities. Tenderness just in the coccyx after a fall. PLAN: We will continue with Cardizem drip and anticoagulation, which he has been on, i.e. Xarelto. He is on an unusually high dose of chlorthalidone, and this needs to be discontinued. 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 Alternative medications can be offered to this patient. He is on sotalol 40 mg b.i.d. for his heart rate. This can be probably increased to 80 b.i.d. at the discretion of his overnight caregiver. When an echocardiogram is done in 6 months, this can be done. Also, the patient can be started on Cardizem. The p.o. equivalent of whatever rate of the drip he is on x24 hours. If after discontinuing the chlorthalidone the patient has hypokalemia, we can also use add on Aldactone for blood pressure control. cc: Joshua Caraballo MD [email or web address]
--- NOTE | 2019-05-03 05:36 | EKG Report ---
Test Performed on : 05/03/2019 03:35:29 AM Test Reason : a-flutter Blood Pressure : / mmHG Vent. Rate : 078 BPM Atrial Rate : 078 BPM P-R Int : 258 ms QRS Dur : 076 ms QT Int : 406 ms P-R-T Axes : 000 -29 045 degrees QTc Int : 462 ms Sinus rhythm. with 1st degree AV block. with premature supraventricular complexes. and with occasiona l premature ventricular complexes. ST & T wave abnormality, consider inferolateral ischemia Prolonged QT Abnormal ECG When compared with ECG of 02-MAY-2019 22:57, (Unconfirmed) Sinus rhythm. has replaced Atrial fibrillation. Borderline criteria for Anterior infarct are no longer present T wave inversion now evident in Inferior leads T wave inversion now evident in Lateral leads Confirmed by Jose F Pascal MD ([id number]) on 05/05/2019 5:28:33 PM
[2019-05-03 06:51] LABS: BASO# 0.04 X1000 (0.0-0.2); BASO% 0.4 % (0.0-0.8); EOS# 0.28 X1000 (0.0-0.7); HEMATOCRIT 38.3 % (42.0-52.0); HEMOGLOBIN 12.5 g/dL (14.0-18.0); IMM GRAN# 0.02 X1000 (0.0-0.04); IMM GRAN% 0.2 % (0.0-0.5); LYMPH# 1.62 X1000 (1.2-3.4); LYMPH% 17.1 % (20.5-51.1); MCH 28.9 PG (27-31); MCHC 32.6 g/dL (33-37); MCV 88.5 FL (81-99); MONO# 0.98 X1000 (0.11-0.59); MONO% 10.3 % (1.7-9.3); MPV 11.5 FL (7.4-10.4); NEUT# 6.53 X1000 (1.4-6.5); PLT 335 X1000 (130-400); RBC 4.33 XMIL (4.7-6.1); RDW 13.4 % (11.5-14.5); WBC 9.47 X1000 (4.8-10.8)
[2019-05-03 07:14] LABS: AGAP 12; BUN 13 mg/dL (8-22); CALCIUM 8.8 mg/dL (8.8-10.2); CHLORIDE 107 mmol/L (98-107); COSMO 294; CREATININE 0.9 mg/dL (0.7-1.2); ESTIMATED GFR > 60; GLUCOSE 128 mg/dL (70-104); POTASSIUM 2.8 mmol/L (3.5-5.1); SODIUM 147 mmol/L (136-145); TCO2 28 mmol/L (25-35)
[2019-05-03] MEDS ORDERED: TYLENOL PO PRN (07:27)
--- NOTE | 2019-05-03 07:39 | Diag Imaging Result Doc PS360 ---
EXAM: CHEST-PORTABLE HISTORY: tachycardia,cp TECHNIQUE: Single view COMPARISON: 03/27/2019 FINDINGS: The lungs are well expanded. The heart is enlarged. The vessels are not distended. There are no infiltrates. No effusion identified. IMPRESSION: Cardiomegaly Electronically signed by Nathaniel Trujillo 05/03/2019 7:36 AM
[2019-05-03 08:12] LABS: POTASSIUM 2.8 mmol/L (3.5-5.1)
--- NOTE | 2019-05-03 08:21 | EKG Report ---
Test Performed on : 05/02/2019 10:57:53 PM Test Reason : repeat of svt Blood Pressure : / mmHG Vent. Rate : 099 BPM Atrial Rate : 340 BPM P-R Int : 000 ms QRS Dur : 086 ms QT Int : 380 ms P-R-T Axes : 000 -13 019 degrees QTc Int : 487 ms Atrial fibrillation. with premature ventricular or aberrantly conducted complexes. Possible Anterior infarct , age undetermined Abnormal ECG When compared with ECG of 02-MAY-2019 22:52, (Unconfirmed) Atrial fibrillation. has replaced Sinus rhythm. Vent. rate has decreased BY 73 BPM Nonspecific T wave abnormality no longer evident in Lateral leads Unconfirmed Result
[2019-05-03] MEDS ORDERED: BETAPACE PO SCH (09:00)
[2019-05-03] MEDS: XARELTO PO SCH (09:18)
[2019-05-03] MEDS: COLACE PO SCH ×2 (10:29→21:51)
--- NOTE | 2019-05-03 10:38 | Diag Imaging Result Doc PS360 ---
EXAM: KUB ABDOMEN HISTORY: Constipation TECHNIQUE: Single view COMPARISON: 03/28/2019 FINDINGS: There is stool throughout the colon. No bowel obstruction. No organomegaly. No foreign body. No abnormal abdominal calcifications. IMPRESSION: Moderate constipation Electronically signed by Nathaniel Trujillo 05/03/2019 10:35 AM
--- NOTE | 2019-05-03 10:40 | Diag Imaging Result Doc PS360 ---
EXAM: COCCYX/SACRUM HISTORY: Fall few weeks ago c/o sacral pain TECHNIQUE: Three views COMPARISON: None. FINDINGS: No sacral or coccygeal abnormality identified. IMPRESSION: No definite fracture. If clinical suspicion persists a CT may be beneficial. Electronically signed by Nathaniel Trujillo 05/03/2019 10:38 AM
[2019-05-03] MEDS: HUMULIN R SUBQ SCH ×3 (11:43→22:18)
[2019-05-03] MEDS ORDERED: LACTULOSE PO ONE (12:04)
[2019-05-03] MEDS ORDERED: ALDACTONE PO ONE (13:30)
--- NOTE | 2019-05-03 14:22 | HISTORY AND PHYSICAL ---
PRIMARY CARE PROVIDER: Dr. Crum. INSTRUCTIONAL DESIGN TECHNOLOGIST: A aviation engineer in [place]. The patient could not tell me his last name. DATE AND TIME: 05/03/2019 at 0330. CHIEF COMPLAINT: Palpitations. HISTORY OF PRESENT ILLNESS: Mr. Briseno is a 58-year-old male. He has a history of hypertension, diabetes mellitus type 2, and paroxysmal atrial fibrillation, and he takes rate control medication of sotalol and anticoagulation of Xarelto. The patient reports that he was at work approximately 45 minutes prior to his arrival to the ER at [facility]. He began having palpitations. He did report some shortness of breath at that time. The patient stated that he did feel the urge to have to urinate, though other than this, did not report any other symptoms. He denied any dizziness, headache, dizziness, lightheadedness. He denied any chest pain. The patient states he had recently had a cough due to an upper respiratory infection, though this has improved and is not present at this time. He denies any abdominal pain, nausea, vomiting, or diarrhea. He does report some recent constipation. He denies any dysuria or urinary frequency. He denies any fever, body aches, or chills. He also denies any pain, numbness, tingling or swelling in his extremities. He is complaining of continued low back pain from a fall a few weeks ago. Unfortunately, the patient is not a good historian, especially related to his medications. He was recently discharged from our facility after being treated for atypical chest pain and hypokalemia. Initially the patient did confirm with us that he took chlorthalidone, though he later told me that he had not taken this medication for months. He also did get discharged with instructions to continue his chlorthalidone, and I do not know if the patient told them that he was not taking this medicine when he was discharged. He was also instructed to take hydralazine 100 mg p.o. b.i.d. and was given a new prescription for medication of lisinopril 20 mg daily. He did see Dr. Crum 2 days after being discharged and was given new prescriptions for amlodipine 5 mg p.o. daily, clonidine 0.1 mg p.o. t.i.d. and losartan potassium 50 mg tablet p.o. daily. The patient did state he got all these medications filled, though only is taking the losartan at this time. I did ask him about his hydralazine dose due to the dose that he stated that he was taking, which was the same dose as he got discharged, but was different from the dose that Dr. Crum gave him a new prescription for. I also asked him if Dr. Crum had told him to stop taking either of the blood pressure medications, and he stated he was not aware of this. While the patient is admitted, we do need to clarify his blood pressure medications, and we need to make sure the patient does get good teaching on this and that he does understand what medicines he is supposed to be taking upon discharge. We are going to place an order for them to contact his pharmacy, which is [facility], to try to obtain a list of what he recently has gotten filled as well. Upon evaluation in the ER, the patient was initially noted to be in SVT. Repeat EKG did show atrial fibrillation, and then after arrival to the our facility at [facility], he was actually in atrial flutter. He was noted to have a low potassium of 2.9 at [facility], though all other electrolytes were within normal limits. He has denied any chest pain. His CK was 73. Troponin T, high sensitivity, was 27. He was given a total of 4. He was given 15 mg of Cardizem IV push and was placed on a Cardizem drip. He also has been given IV and p.o. potassium for his hypokalemia. He has been transferred to [facility] for further treatment and evaluation. REVIEW OF SYSTEMS: A 14 point review of systems was conducted with the patient, and all were negative except for pertinent positives mentioned above in the HPI. PAST MEDICAL HISTORY: 1. Hypertension. 2. Diabetes mellitus type 2. 3. Paroxysmal atrial fibrillation. PAST SURGICAL HISTORY: 1. Appendectomy. 2. Left knee replacement. 3. Bilateral rotator cuff repair. SOCIAL HISTORY: The patient denies any tobacco or illicit drug use. He reports he only occasionally drinks alcohol. He is . His was present at bedside during my examination. He reports that he does work at [employer] here in [place]. FAMILY HISTORY: Positive for his mother having history of asthma and Alzheimer disease. His father did pass away when he was a baby, though he does not know the cause of his . ALLERGIES: Patient reports no known allergies. HOME MEDICATIONS: As previously mentioned, we are awaiting the patient's home medication list to be updated and verified. There have been recent changes his medication list as well as 3 new recent blood pressure medicines, and the patient did have some confusion about what he was taking and was not supposed to be taking. We are trying to obtain a list from his pharmacy of what he has recently gotten filled. The patient reported to me that he is currently taking lisinopril, metformin, Xarelto, sotalol, hydralazine, potassium chloride extended release and losartan. He reports that he recently did receive new prescriptions for Norvasc and clonidine. Though he got these filled, he has not taken any of those medicines. He did initially report that he did still take the chlorthalidone. After further questioning, the patient did denied this and stated he has not taken this medication for months. DIAGNOSTIC DATA: White blood cell count is 10,080, hemoglobin 12.7, hematocrit 39.5, platelet count is 349. PT 14.9, INR 1.11, PTT 42.3. Sodium 145, potassium 2.9, chloride 105, serum bicarb 24, BUN 14, creatinine 0.9 with a GFR greater than 60, glucose 202, calcium 9.3, magnesium 1.9. Liver function tests within normal limits. CK 73, troponin T high-sensitivity 27. The patient has had a total of 4 EKGs since his arrival. His initial EKG did show supraventricular tachycardia at a rate in the 170s. This was upon initial arrival at [facility]. Subsequent EKG did show atrial fibrillation with a rate in the 90s. We did perform an EKG after his arrival to [facility] because the patient did show atrial flutter on the monitor. Chest x-ray showed cardiomegaly, though the vessels were not distended, and there were no infiltrates and no effusions identified. PHYSICAL EXAMINATION: VITAL SIGNS: Temperature 98, heart rate 91, respirations 17. Last blood pressure documented was 159/130, though I do believe the diastolic pressure is not correct. The previous reading to this was 156/78. Oxygen saturation is 100% on room air. GENERAL: Mr. Briseno is a pleasant 58-year-old male who is resting in the inpatient bed. He is in no acute distress. He is awake, alert, and able to answer questions appropriately. HEENT: Head is atraumatic, normocephalic. Pupils are equal, round, and reactive to light, 3 mm bilaterally and brisk. Oral mucosa is moist. Oropharynx clear. NECK: Supple. Trachea midline. CARDIOVASCULAR: Patient has S1-S2 present. No murmurs, gallops or rubs appreciated. Has an irregularly irregular rhythm with a rate that is variable, ranging anywhere from the 90s to the high 40s. PULMONARY: The patient has symmetrical chest expansion bilaterally. Lung sounds are clear to auscultation in bilateral full mcnally. ABDOMEN: Soft, nontender, nondistended. Bowel sounds are present in all 4 quadrants, normoactive. EXTREMITIES: No cyanosis or edema noted. Pulse, motor, and sensory were intact in all extremities. Radial pulses were 2+ bilaterally. Pedal pulses were 1+ bilaterally. MUSCULOSKELETAL: The patient has pain and tenderness upon palpation in his sacral area at midline. No swelling or discoloration was noted. INTEGUMENTARY: The patient's skin color is normal for his race. It is dry and intact. NEUROLOGICAL: Patient is alert and oriented to person, place, time, and situation. He is able to move all extremities. There are no focal neurological deficits noted. ASSESSMENT AND PLAN: 1. Atrial fibrillation. The patient does have a history of paroxysmal atrial fibrillation and does take sotalol. Upon initial arrival to the ER, he did have supraventricular tachycardia noted on the EKG. He did have subsequent atrial fibrillation and has been in atrial flutter at times since arriving here at our facility. He was placed on a Cardizem drip, though after arriving to [facility], he was having periods where his heart rate was dropping into the mid high 40s. Given this, we have stopped the Cardizem at this time. The patient is maintaining a heart rate anywhere from the mid 50s to 80s and 90s. We will continue to hold the Cardizem at this time. We will place the patient on his oral sotalol, though it will be held if his heart rate is less than 60. We will continue his anticoagulation, Xarelto. His potassium will be repleted. We have placed a consult for Cardiology with Dr. Dobson for his assistance with further evaluation of his supraventricular tachycardia and atrial fibrillation as well as atrial flutter. We also would appreciate assistance in determining which blood pressure medications would best for the patient to take. We will await his evaluation and further recommendations. We will continue to follow closely. 2. Hypokalemia. Looking back at the patient's history, he has had persistent hypokalemia since 2016. It was initially thought that he took chlorthalidone. The patient has denied taking this for a few months now. We are going to replete his potassium, though we are likely going to order further diagnostic studies for further evaluation of possible causes of his continued complications with hypokalemia. He did receive a total of 50 mg of potassium chloride IV. We are going to give potassium chloride 40 mEq p.o. and will recheck his potassium level after this. 3. Hypertension. We are trying to obtain clarification of an accurate medication list on the patient at this time, as to what blood pressure medications he is supposed to be taking. His blood pressure systolic is 150. We will continue his sotalol. We will hold all his medications and await evaluation by Cardiology, and we will follow their recommendations. 4. Diabetes mellitus type 2. We will do pattern fingerstick blood sugars. We will do regular insulin per sliding scale, low-dose protocol. He will be on a diabetic and heart healthy diet. 5. Deep vein thrombosis prophylaxis will be provided with his regularly prescribed Xarelto. 6. Sacral Pain from a fall a few weeks ago. he patient has pain and tenderness upon palpation in his sacral area at midline. We will perform sacral/coccyx radiology studies for further evaluation. 7. Possible Constipation. We will perform an abdominal xray for further evaluation and will place the patient on a bowel regimen with Colace and Miralax. The patient has been placed in the PVC unit for close monitoring. He will receive continuous cardiac telemetry and frequent vital signs. We will do a series of cardiac enzymes. We will also recheck his electrolytes this morning, especially including potassium and magnesium. Further orders and recommendations pending hospital course, diagnostic studies, and physician evaluation. Dictated by DELANEY Valentine for Joshua Caraballo MD cc: Joshua Caraballo MD [facility]
--- NOTE | 2019-05-03 18:29 | CARDIOLOGY CONSULTATION ---
DATE: 05/03/2019 REQUESTING PHYSICIANS: Hospitalist service. REASON FOR CONSULTATION: Palpitations, irregular heartbeat, atrial fibrillation. HISTORY OF PRESENT ILLNESS: Mr. Briseno is a 58-year-old black gentleman who states that he was at work at [employer] doing his second shift like usual when all of sudden around 9:30 p.m. he started having palpitations. This felt very much like previously identified episodes of paroxysmal atrial fibrillation. The patient at that time felt like he needed to urinate, and he went to the bathroom quite a bit. Then he notified his supervisor [employer], and he was brought to the emergency room. He was here in the ER at around 10:30 p.m. They did an EKG that showed atrial fibrillation with rapid response. They put him on Cardizem. His heart rate has improved. Of note, they noted that his potassium was low at 2.9. Previously, his potassium has been found to be low on multiple determinations. At this time he is feeling better. He is not having any more palpitations. PAST MEDICAL HISTORY: His past history is negative for heart attack. He has had a previous diagnosis of hypertension. He has also been diagnosed with diabetes mellitus type 2. The patient was found to have paroxysmal atrial fibrillation at the time of a knee procedure in [place], and following that procedure, he was referred to a advertising dispatch clerk in [place] who has been following him. About 4 years ago, this patient was seen by our former partner, Dr. Lena Randle, on a hospital visit in June 2015. At that time Dr. Randle did a number of studies including an echocardiogram that basically came back normal and blood work which pointed in the direction of hyperaldosteronism. His aldosterone level on 06/26/2015 was reported at 37 ng/dL, which is very elevated. The renin activity at that time was less than 0.6 ng/mL/hr, which for all practical purposes makes a diagnosis of primary hyperaldosteronism. Unfortunately, the patient did not follow through with recommendations given to him to see an oil filters inspector in [place]. His last hemoglobin A1c was checked on 03/28/2019 at 6.4%. The patient has a history of arthritis involving multiple joints. PAST SURGICAL HISTORY: He has had left knee surgery, total replacement. He has had bilateral shoulder surgery on the rotator cuffs. He has also had an appendectomy. SOCIAL HISTORY: He works at [employer]. He is not a smoker. He has been to his for 35 years. He has 2 grown-up children. HOME MEDICATIONS: Listed at the time of the present admission, home medications are as follows: Hydralazine 100 mg twice daily, lisinopril 20 mg daily, losartan 50 mg daily, metformin 1000 mg twice daily, potassium chloride 20 mEq daily, Xarelto 20 mg daily, sotalol 40 mg twice daily. PHYSICAL EXAMINATION: VITAL SIGNS: Blood pressure right now is 164/112, pulse 69, temperature 98.2, respirations 20. GENERAL: He is awake, alert and oriented. No distress. HEENT: Unremarkable. CHEST: Clear to auscultation and percussion. CARDIOVASCULAR: Heart sounds are irregular. No gallop or murmur. ABDOMEN: Nontender, soft. No masses or hepatomegaly. EXTREMITIES: With good pulses. No peripheral edema. NEUROLOGIC: Follows commands. Moves 4 extremities. BLOOD WORK: Hemoglobin 12.5, hematocrit 38.3, platelet count 35,000. Sodium is 147, potassium 3.4, chloride 107, carbon dioxide 28. TSH is normal. Albumin is 4.1. Globulin 3.0. Magnesium is 2.0 IMPRESSION: 1. Patient who presents with paroxysmal atrial fibrillation. He has already been placed on Xarelto by his primary advertising dispatch clerk in [place], and also he seems to be on a very reduced dose of sotalol. 2. Patient with severe hypertension. This is a long-term condition, and his previous investigation has disclosed the fact that he has primary hyperaldosteronism. Unfortunately, the patient was lost to followup when his advertising dispatch clerk left town here, and he has hooked up with another advertising dispatch clerk who apparently was not aware of those findings. 3. The patient has diabetes mellitus type 2. 4. The patient has osteoarthritis. He had a previous knee replacement, and currently he has pain in the right knee. 5. Persistent hypokalemia secondary to hyperaldosteronism. RECOMMENDATIONS: 1. At this time we are going to crank up his spironolactone to 50 mg twice daily. I will request a CT of the abdomen focusing on the adrenal glands to document whether or not he has a unilateral process or a bilateral enlargement of the adrenal glands. Depending on the results, we will make a referral immediately to either a surgeon or an oil filters inspector in [place]. 2. Regarding the atrial fibrillation, we are going to go up on his sotalol to 80 mg twice daily. We will put him on lisinopril 20 mg twice daily. He cannot be a combination of lisinopril plus ARB plus beta nae because that has been found to be detrimental. We will request an echocardiogram, and further advice will be forthcoming. Thank you for asking us to participate in this patient's care. cc: Wai Dobson MD
[2019-05-03] MEDS: MIRALAX PO SCH (21:51)
[2019-05-03] MEDS: PRINIVIL PO SCH (21:51)
[2019-05-03] MEDS: BETAPACE PO SCH (21:51)
[2019-05-03] MEDS: ALDACTONE PO SCH (21:51)
[2019-05-03] MEDS: LACTULOSE PO SCH (21:51)
[2019-05-04] MEDS: HUMULIN R SUBQ SCH ×4 (06:08→20:07)
[2019-05-04 06:27] LABS: HEMATOCRIT 36.9 % (42.0-52.0); HEMOGLOBIN 11.8 g/dL (14.0-18.0); MCH 28.8 PG (27-31); MPV 11.4 FL (7.4-10.4); RBC 4.1 XMIL (4.7-6.1); RDW 13.6 % (11.5-14.5); WBC 8.5 X1000 (4.8-10.8)
[2019-05-04 07:09] LABS: AGAP 12; ALBUMIN 2.9 g/dL (3.5-5.0); ALKALINE PHOSPHATASE 78 U/L (32-122); BUN 14 mg/dL (8-22); CALCIUM 8.8 mg/dL (8.8-10.2); CHLORIDE 108 mmol/L (98-107); COSMO 290; CREATININE 1.2 mg/dL (0.7-1.2); ESTIMATED GFR > 60; GLUCOSE 114 mg/dL (70-104); GOT 9 U/L (10-34); GPT 5 U/L (10-44); PHOSPHORUS 3.5 mg/dL (2.7-4.5); POTASSIUM 3.1 mmol/L (3.5-5.1); SODIUM 145 mmol/L (136-145); TCO2 25 mmol/L (25-35); TOTAL BILIRUBIN 0.36 mg/dL (0.20-1.00); TOTAL PROTEIN 5.9 g/dL (6.3-8.3)
[2019-05-04] MEDS ORDERED: POTASSIUM CHLORIDE 20% LIQUID PO ONE (08:05)
[2019-05-04] MEDS ORDERED: ALDACTONE PO SCH (09:00)
[2019-05-04] MEDS: PRINIVIL PO SCH ×2 (09:03→20:06)
[2019-05-04] MEDS: BETAPACE PO SCH ×2 (09:03→20:07)
[2019-05-04] MEDS: COLACE PO SCH ×2 (09:03→20:07)
[2019-05-04] MEDS: ALDACTONE PO SCH ×2 (09:03→20:06)
[2019-05-04] MEDS: XARELTO PO SCH (09:03)
[2019-05-04] MEDS: MIRALAX PO SCH ×2 (09:04→20:07)
[2019-05-04] MEDS: LACTULOSE PO SCH ×2 (09:04→20:06)
--- NOTE | 2019-05-04 09:51 | EKG Report ---
Test Performed on : 05/04/2019 06:17:29 AM Test Reason : afib Blood Pressure : / mmHG Vent. Rate : 104 BPM Atrial Rate : 277 BPM P-R Int : 000 ms QRS Dur : 074 ms QT Int : 362 ms P-R-T Axes : 154 -54 092 degrees QTc Int : 476 ms Atrial flutter. with variable AV block. with premature ventricular or aberrantly conducted complexes. Left axis deviation Abnormal QRS-T angle, consider primary T wave abnormality Abnormal ECG When compared with ECG of 03-MAY-2019 03:35, (Unconfirmed) Atrial flutter. has replaced Sinus rhythm. T wave inversion no longer evident in Inferior leads T wave inversion no longer evident in Lateral leads Confirmed by Gwyn SMITH MElle Parsons ([id number]) on 05/05/2019 5:29:48 PM
--- NOTE | 2019-05-04 21:05 | EKG Report ---
Test Performed on : 05/04/2019 8:55:35 PM Test Reason : rhythm change Blood Pressure : / mmHG Vent. Rate : 068 BPM Atrial Rate : 068 BPM P-R Int : 174 ms QRS Dur : 072 ms QT Int : 422 ms P-R-T Axes : 047 -23 046 degrees QTc Int : 448 ms Normal sinus rhythm. Septal infarct , age undetermined Inferior infarct , age undetermined Abnormal ECG When compared with ECG of 04-MAY-2019 06:17, (Unconfirmed) Sinus rhythm. has replaced Atrial flutter. Vent. rate has decreased BY 36 BPM Septal infarct is now present Inferior infarct is now present Unconfirmed Result
--- NOTE | 2019-05-05 04:38 | PROGRESS NOTE ---
DATE: 05/04/2019 SUBJECTIVE: The patient is resting comfortably in bed. He has no complaints. No acute events noted overnight. OBJECTIVE: Vital Signs: Temperature 98 degrees, blood pressure 164/99, heart rate 70, respirations 17, O2 saturations 100% on room air. General: This is an elderly male lying in bed in no acute distress. Heart: S1, S2 normal. Regular rate and rhythm. Lungs: Clear to auscultation bilaterally. Abdomen: Positive bowel sounds. Soft, nontender, nondistended. Extremities: No edema. No cyanosis. Neurologic: The patient is alert and oriented x3. LABS: White blood cell count 8.5, hemoglobin 11, hematocrit 36, platelets 336,000, sodium 145, potassium 3.9, chloride 108, CO2 25, BUN 14, creatinine 1.2, glucose 114. ASSESSMENT AND PLAN: 1. Paroxysmal atrial fibrillation. Continue on the current regimen as directed by the figure refinisher and repairer. 2. Primary hyperaldosteronism. The patient has been started on Aldactone. He is scheduled to undergo a CT scan focusing on the adrenals tomorrow morning. Will continue to follow closely. 3. Hypertension. Likely secondary to primary hyperaldosteronism. Continue to adjust the patient's medication regimen. 4. Hypokalemia. This is secondary to primary hyperaldosteronism. The patient is now on Aldactone. Will also continue with potassium supplementation. cc: Africa Best MD
[2019-05-05 06:08] LABS: HEMATOCRIT 34.4 % (42.0-52.0); MCH 29.2 PG (27-31); MCV 91.2 FL (81-99); MPV 10.9 FL (7.4-10.4); RBC 3.77 XMIL (4.7-6.1); RDW 13.9 % (11.5-14.5); WBC 9.64 X1000 (4.8-10.8)
[2019-05-05 06:32] LABS: ALBUMIN 3.2 g/dL (3.5-5.0); CALCIUM 9.3 mg/dL (8.8-10.2); CREATININE 1.6 mg/dL (0.7-1.2); PHOSPHORUS 4.1 mg/dL (2.7-4.5); POTASSIUM 3.2 mmol/L (3.5-5.1)
[2019-05-05] MEDS: HUMULIN R SUBQ SCH ×4 (06:32→21:01)
[2019-05-05] MEDS ORDERED: NS 1,000 ML IV SCH ×2 (06:45)
--- NOTE | 2019-05-05 06:45 | CARDIOLOGY PROGRESS NOTE ---
DATE: 05/04/2019 CHIEF COMPLAINT: Irregular heart beat, hypertension. SUBJECTIVE: Mr. Briseno is feeling better. In fact, he appears to have converted back to a sinus rhythm. This morning his EKG shows atrial fibrillation/flutter with variable rate that was done at 6:17 a.m. I am seeing him tonight at 6 p.m. and he has already converted to a sinus rhythm. His rate is 71 beats per minute. OBJECTIVE: He is definitely feeling better. His blood pressure is still elevated. It has been ranging from as low as 156/78 at midnight on the to as high as 188 24 hours later. Right now his blood pressure is 164/99. His pulse is 71. Temperature is 98 degrees. Respirations 17. He is awake, alert, and oriented. No distress. HEENT unremarkable. Chest, lungs clear to auscultation and percussion. Heart sounds now are regular and rhythmic, without gallop or murmur. His abdomen is nontender. Extremities are with good pulses. No edema. Neurological exam, follows commands, moves 4 extremities. BLOOD WORK: Today sodium is 145, potassium 3.9, BUN 14, creatinine 1.2. Albumin is 2.9. IMPRESSION: 1. A patient who presents with paroxysmal atrial fibrillation. He has converted now to a sinus rhythm. I put him on sotalol 80 mg twice a day. 2. Severe hypertension with persistent hypokalemia. The patient has already laboratory evidence four years ago of hyperaldosteronism. 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 3. Diabetes mellitus type 2. 4. Osteoarthritis. RECOMMENDATIONS: At this time we are anticipating doing a CT scan of the abdomen focusing on the adrenal glans tomorrow morning with and without contrast as per discussion with the radiologist, Dr. Trujillo. Depending on that, we will advise the patient to pursue management of primary hyperaldosteronism. We may suggest either a referral to [place] or [facility] were they have certainly a larger caseload of individuals with this condition. We will discuss with the patient what to do next after reviewing the CT scan. cc: MD SOHAM Son
--- NOTE | 2019-05-05 07:45 | EKG Report ---
Test Performed on : 05/05/2019 06:39:33 AM Test Reason : atrial fibrillation paroxysmal Blood Pressure : / mmHG Vent. Rate : 066 BPM Atrial Rate : 066 BPM P-R Int : 178 ms QRS Dur : 074 ms QT Int : 434 ms P-R-T Axes : 055 -17 048 degrees QTc Int : 454 ms Normal sinus rhythm. Septal infarct (cited on or before 04-MAY-2019) Inferior infarct (cited on or before 04-MAY-2019) Abnormal ECG When compared with ECG of 04-MAY-2019 20:55, (Unconfirmed) No significant change was found Confirmed by Jose F Pascal MD ([id number]) on 05/05/2019 5:30:38 PM
--- NOTE | 2019-05-05 08:55 | ECHO REPORT ---
ORDER DATE: 05/04/2019 INTERPRETING PHYSICIAN: Dr. Dobson REQUESTING PHYSICIAN: CLINICAL INDICATIONS: This is a 58-year-old male with severe hypertension, paroxysmal atrial fibrillation, underlying diagnosis of primary hyperaldosteronism. M-MODE MEASUREMENTS: Right ventricle: cm. Left ventricle end diastole: 4.9 cm. Left ventricle end systole: 3.8 cm. Posterior wall: 1.4 cm. Interventricular septum: 1.5 cm. Left atrium: 5.4 cm. Aortic root: 3.7 cm. SUMMARY OF 2-DIMENSIONAL IMAGIN. The left ventricular function appears to be mildly decreased, estimated in the neighborhood of 50%. 2. There is mild to moderate concentric LVH. 3. Tricuspid valve shows mild degree of regurgitation. 4. Pulmonary pressure is estimated at 62 mmHg. 5. Inferior vena cava is borderline enlarged. 6. Aortic valve has 3 cusps, and they open normally. Color flow mapping is unremarkable. 7. Pulmonic valve is unremarkable. 8. Mitral valve shows mild degree of regurgitation. 9. At the time when the study was performed, the patient was in atrial fibrillation. 10.The pulse wave Doppler of mitral inflow shows a single filling wave. 11.The tissue Doppler of septal and lateral mitral annulus averages 4 cm. 12.A localized or sort of focal pericardial effusion is present attached to the posterolateral wall of the left ventricle. 13.The pulse wave Doppler of pulmonary venous flow shows predominance of a diastolic component. 14.The tissue Doppler of septal and lateral mitral annulus in this case measures 4 cm. 15.The patient probably has significant diastolic dysfunction. 16.The left atrium is markedly enlarged. 17.The volume index for the left atrium is close to 100 mL per m sq of body surface area. That is really a large left atrium. 18.There are no masses or thrombus. CONCLUSIONS: In summary, the study shows: 1. Mildly decreased left ventricular systolic function. Ejection fraction estimated at 50%. 2. Markedly enlarged left atrium suggesting that the patient may have had atrial fibrillation for a long time. 3. Moderate pulmonary hypertension estimated at 50%. 4. No aortic stenosis. Suspect diastolic dysfunction. Clinical correlation is recommended. cc: Wai Dobson MD
[2019-05-05] MEDS: NS 1,000 ML IV SCH ×3 (09:10→21:03)
[2019-05-05] MEDS: MIRALAX PO SCH ×2 (09:11→21:02)
[2019-05-05] MEDS: XARELTO PO SCH (09:11)
[2019-05-05] MEDS: COLACE PO SCH ×2 (09:11→21:02)
[2019-05-05] MEDS: BETAPACE PO SCH ×2 (09:12→21:02)
[2019-05-05] MEDS: ALDACTONE PO SCH ×2 (09:12→21:02)
[2019-05-05] MEDS: LACTULOSE PO SCH ×2 (09:12→21:02)
[2019-05-05 09:50] LABS: URINE SOURCE CLEAN CATCH
[2019-05-05 09:59] LABS: BILIRUBIN URINE NEGATIVE (NEGATIVE); BLOOD URINE NEGATIVE (NEGATIVE); COLOR YELLOW; GLUCOSE URINE NEGATIVE (NEGATIVE); KETONE URINE NEGATIVE (NEGATIVE); LEUKOCYTES URINE NEGATIVE (NEGATIVE); NITRITE URINE NEGATIVE (NEGATIVE); PH URINE 6.5; PROTEIN URINE 30 mg/dL (NEGATIVE); SP GRAVITY URINE 1.028; TURBIDITY URINE CLEAR (CLEAR); UROBILINOGEN URINE NORMAL (NORMAL)
[2019-05-05 10:01] LABS: UR EPITHELIAL CELLS <10 /HPF (<10); URINE BACTERIA NEGATIVE /HPF; URINE RBC <10 /HPF (<10); URINE WBC <10 /HPF (<10)
[2019-05-05 10:05] LABS: UR CREAT RANDOM 60.7 mg/dL (14-26); UR PROT RANDOM 25.1 mg/dL
--- NOTE | 2019-05-05 10:18 | Diag Imaging Result Doc PS360 ---
EXAM: CT ABDOMEN/PELVIS W/WO CONTRAS INDICATION: Adrenal hyperplasia versus adrenal mass/ TECHNIQUE: This exam was performed using automated exposure control, adjustment of mA or kV according to patient size, and/or use of iterative reconstruction technique. COMPARISON: 02/05/2017 FINDINGS: There is cardiomegaly and a moderate-sized pericardial effusion. There is interstitial thickening and mild patchy groundglass opacity at both lung bases indicating pulmonary edema. There is trace bilateral pleural fluid. There are known bilateral adrenal masses. The mass in the right measures 2.5 x 1.7 cm axially. The mass in the left measures 2.2 x 1.4 cm axially. The absolute contrast washout after 15 minutes for the right adrenal mass is 86%. The absolute contrast washout after 15 minutes for the left adrenal mass is 84%. These values are highly consistent with adrenal adenomas. The liver, spleen, pancreas, and kidneys are grossly unremarkable. The prostate is enlarged measuring up to 6.1 cm in diameter. The urinary bladder wall is mildly thickened diffusely. This is probably due to chronic trabecular hypertrophy related to long-term partial outlet obstruction from the enlarged prostate. There is abundant stool in the colon suggesting possible constipation. There is no obstructive bowel pattern. No focal bowel wall thickening is appreciated. There is a small hiatal hernia. No focal inflammatory changes, free abdominal gas, or free fluid is appreciated. There are degenerative changes of both hips and mild degenerative change involving the lumbar spine. There is no evidence of acute osseous abnormality. IMPRESSION: 1.Bilateral adrenal adenomas as described. 2.Enlarged prostate. 3.Possible constipation. 4.Cardiomegaly with a moderate-sized pericardial effusion and pulmonary edema at the lung bases. Electronically signed by Yadiel Muniz 05/05/2019 10:16 AM
--- NOTE | 2019-05-05 14:41 | NEPHROLOGY CONSULTATION ---
DATE: 05/05/2019 REASON FOR ADMISSION: Palpitations, shortness of breath, lightheadedness. HISTORY OF PRESENT ILLNESS: He came into the emergency room. He was found to be in paroxysmal atrial fibrillation with a heart rate in the 150 range. He was transferred over to [facility] for further workup and treatment. Originally, his creatinine was normal at 0.9. He has undergone imaging and workup. However, through the course of his hospitalization, his creatinine has slowly risen to 1.6. He was found to be hypertensive and hypokalemic. He has a previous history of hyperaldosteronism. Patient has been on chlorthalidone. He has been changed over to aldosterone, but because of his worsening renal function, we have been asked to see him. The patient is noted to be both an SHANNAN and ARB. The patient did convert to a sinus rhythm yesterday. It was felt that the patient had lab evidence of hyperaldosteronism that was likely a primary process. The patient underwent CT imaging today, which indicated bilateral adrenal adenomas. He also was noted to have cardiomegaly with moderate-sized pericardial effusion, pulmonary edema. PAST MEDICAL HISTORY: Hypertension, diabetes type 2, history of paroxysmal atrial fibrillation. PAST SURGICAL HISTORY: Appendectomy, left knee replacement, bilateral rotator cuff repair. ALLERGIES: None. HOME MEDICATIONS: Listed as metformin, Xarelto, sotalol, Apresoline, potassium chloride, lisinopril and losartan. FAMILY HISTORY: Noncontributory. SOCIAL HISTORY: Occasional EtOH. No illicit drug or tobacco use. Pertinent positives are noted above, palpitations, dizziness. PHYSICAL EXAMINATION: Vital Signs: Temperature 97.9 degrees, pulse 84, respiratory rate 17, blood pressure 153/83. Intake 1.8 L; output not measured. General: This is a well-appearing, middle-aged gentleman resting in bed. He is awake and alert. He is in no acute distress. HEENT: Normocephalic, atraumatic. LUKE. Conjunctivae are pink. Neck: Supple. No JVD. Cardiovascular: Regular rhythm. Controlled rate. Pulmonary: Clear bilaterally. Abdomen: Soft. Positive bowel sounds. : Voiding. Extremities: No clubbing, cyanosis, edema. Integumentary: Skin is warm and dry. Neurologic: Nonfocal. LAB DATA: WBC of 9.6, hemoglobin 11. Sodium 144, potassium 3.2, CO2 25. BUN 26, creatinine 1.6, calcium 9.3, phosphorus 4.1, albumin 3.2. ASSESSMENT AND PLAN: 1. Acute kidney injury. Possibly related to IV contrast. Low risk for requiring SKIN TANNER. 2. Hyperaldosteronism with new finding of bilateral adrenal masses. I agree with the spironolactone. We will check AM cortisol and 24 hour urine cortisol and aldosterone. His Gualberto:PRA was documented to be high several years ago. 3. Hypertension. Continue with current treatment plan. Of note, he is on Aldactone, Betapace and Cardizem. 4. Electrolytes and acid-base balance. These are in target. Dictated by DELANEY Solo for Brayden Freitas MD Face to face encounter, data reviewed, discussed with Cesario Lanza on 05/05/19. I agree with the above assessment and plan of care. cc: Brayden Freitas MD [facility]
[2019-05-05] MEDS ORDERED: KLOR-CON PO ONE (14:48)
--- NOTE | 2019-05-05 17:18 | CARDIOLOGY PROGRESS NOTE ---
DATE: 05/05/2019 CHIEF COMPLAINT: Irregular heart beat. Palpitations. SUBJECTIVE: Mr. Briseno is feeling better. He has converted to sinus rhythm. EKG this morning at 6:39 shows sinus rhythm with VT of 178, QRS 74, QT corrected 454. No ischemia noted. He is comfortable and doing better. OBJECTIVE: Vital Signs: Blood pressure is 177/92, temperature 97.7 degrees, pulse 72, and respirations 20. General: Awake, alert, oriented, in no distress. HEENT: Unremarkable. Chest: Sounds clear to auscultation and percussion. Heart: Sounds are regular and rhythmic. No gallop or murmur. Abdomen: Nontender. Extremities: Showed no edema. Neurologic: Follows commands, moves all four extremities. DIAGNOSTIC DATA: Blood work this morning showed sodium of 144, potassium 3.2, BUN 24, creatinine 1.6, albumin 3.2. Hemoglobin 11 grams. IMPRESSION: 1. The patient who has severe hypertension and persistent hypokalemia. This is secondary to adrenal adenomas. 2. Finding of bilateral adrenal adenomas on CT scan of the abdomen today. 3. Paroxysmal atrial fibrillation, back in sinus rhythm. 4. Suspect chronic diastolic dysfunction. His pro BNP level has not been checked. I am going to ask for one. 5. History of diabetes mellitus type 2. 6. History of osteoarthritis. RECOMMENDATIONS: At this time, I am going to add amlodipine to his regimen. We will make a referral to [facility] Endocrinology service for expert opinion and management of his uncommon/infrequent condition. In the meantime, we are going to keep everything else going. Renal service has been consulted because his creatinine went up. We will see how he does over the next couple of days. Hopefully, we will get him home soon. cc: Wai Dobson MD [facility]
--- NOTE | 2019-05-05 19:49 | PROGRESS NOTE ---
DATE: 05/05/2019 SUBJECTIVE: The patient is resting comfortably in bed. He has no complaints at this time. He denies having any headache, dizziness or chest pain. OBJECTIVE: Vital Signs: Temperature 97 degrees, blood pressure 177/92, heart rate 72, respirations 20, O2 saturation 98% on room air. General: This is a chronically ill-appearing elderly male lying in bed in no acute distress. Heart: S1, S2 normal. Lungs: Clear to auscultation bilaterally. No wheezing. No rales. No rhonchi. Abdomen: Positive bowel sounds. Soft, nontender, nondistended. Extremities: No edema. No cyanosis. No calf tenderness. Neurologic: The patient is alert and oriented x3. LABS: White blood cell count 9.6, hemoglobin 11, hematocrit 34, platelets 329,000. Sodium 144, potassium 3.2, chloride 107, CO2 25, BUN 24, creatinine 1.6, glucose 105, calcium 9.3, phosphorus 4.1. IMAGING: CT of the abdomen and pelvis reveals bilateral adrenal adenomas. Enlarged prostate. Constipation. Cardiomegaly. A moderate pericardial effusion. ASSESSMENT AND PLAN: 1. Paroxysmal atrial fibrillation. The patient is now in sinus rhythm. Continue on sotalol and Xarelto as directed by the braid folder. 2. Primary hyperaldosteronism. The CT of the abdomen and pelvis done today confirms that the patient has bilateral adrenal adenoma. He also has the clinical features consistent with the diagnosis. The patient had a workup [place] [address] Arteaga but failed to follow up. The renin and aldosterone levels are currently pending at this time. The patient is scheduled to follow up with Dr. Sykes at [facility] Endocrinology Clinic at [facility] in [place]. The patient has been advised to keep this appointment upon discharge from the hospital. We will fax the patient's records to Dr. Sykes's office. The case was discussed with . 3. Refractory hypertension. Likely secondary to primary hyperaldosteronism. Continue to titrate the Aldactone dosage as tolerated. 4. Refractory hypokalemia. This is secondary to primary hyperaldosteronism. Continue on Aldactone and potassium supplementation. 5. Acute kidney injury. The patient is receiving intravenous fluids that were started this morning. Urine studies are pending. We will monitor the patient's renal function closely after the receiving intravenous contrast today for the CT scan. The case was discussed with Dr. Freitas. 6. Diabetes mellitus type 2. Continue with sliding scale insulin. We will hold the metformin at this time. 7. Constipation. Continue with laxative therapy. 8. Pericardial effusion. Aware. 9. We will consult Physical Therapy. cc: Africa Best MD [facility]TD[facility]
[2019-05-05] MEDS: NORVASC PO SCH (21:02)
[2019-05-06] MEDS ORDERED: APRESOLINE IV ONE (02:16)
[2019-05-06] MEDS: NS 1,000 ML IV SCH (05:21)
[2019-05-06 06:14] LABS: HEMATOCRIT 37.6 % (42.0-52.0); HEMOGLOBIN 12.3 g/dL (14.0-18.0); MCH 29.4 PG (27-31); MCHC 32.7 g/dL (33-37); MPV 10.9 FL (7.4-10.4); RBC 4.18 XMIL (4.7-6.1); RDW 13.7 % (11.5-14.5); WBC 16.8 X1000 (4.8-10.8)
[2019-05-06] MEDS: HUMULIN R SUBQ SCH ×2 (06:17→11:55)
[2019-05-06 06:37] LABS: AGAP 12; ALBUMIN 3.6 g/dL (3.5-5.0); BUN 13 mg/dL (8-22); CALCIUM 9.6 mg/dL (8.8-10.2); CHLORIDE 108 mmol/L (98-107); COSMO 291; ESTIMATED GFR > 60; GLUCOSE 139 mg/dL (70-104); PHOSPHORUS 2.8 mg/dL (2.7-4.5); POTASSIUM 3.3 mmol/L (3.5-5.1); SODIUM 145 mmol/L (136-145); TCO2 25 mmol/L (25-35)
--- NOTE | 2019-05-06 06:47 | Diag Imaging Result Doc PS360 ---
EXAM: CHEST-1 VIEW HISTORY: dyspnea TECHNIQUE: Single view COMPARISON: 05/02/2019 FINDINGS: The lungs are well expanded. The heart is enlarged. There is pulmonary edema and there may be tiny left pleural effusion. There is atelectasis in the left base. There may be underlying infiltrates in the lung bases. IMPRESSION: Interval worsening Electronically signed by Nathaniel Trujillo 05/06/2019 6:45 AM
[2019-05-06] MEDS: COLACE PO SCH ×2 (07:34→08:16)
[2019-05-06] MEDS: BETAPACE PO SCH ×2 (07:34→08:16)
[2019-05-06] MEDS: KLOR-CON PO SCH ×2 (07:35→11:55)
[2019-05-06] MEDS: XARELTO PO SCH ×2 (07:35→08:17)
[2019-05-06] MEDS: NORVASC PO SCH ×2 (07:35→08:17)
[2019-05-06] MEDS: ALDACTONE PO SCH ×2 (07:35→08:15)
[2019-05-06] MEDS: LACTULOSE PO SCH ×2 (07:36→08:16)
[2019-05-06] MEDS: MIRALAX PO SCH ×2 (07:36→08:17)
[2019-05-06 07:37] VITALS: BP 187/87
--- NOTE | 2019-05-06 07:59 | EKG Report ---
Test Performed on : 05/06/2019 06:44:39 AM Test Reason : paroxysmal atrial fibrillation Blood Pressure : / mmHG Vent. Rate : 089 BPM Atrial Rate : 089 BPM P-R Int : 164 ms QRS Dur : 072 ms QT Int : 386 ms P-R-T Axes : 068 004 048 degrees QTc Int : 469 ms Normal sinus rhythm. Normal ECG When compared with ECG of 05-MAY-2019 06:39, Criteria for Septal infarct are no longer present Criteria for Inferior infarct are no longer present Confirmed by Jose F Pascal MD ([id number]) on 05/06/2019 4:19:15 PM
[2019-05-06] MEDS ORDERED: APRESOLINE PO SCH ×2 (09:00)
[2019-05-06] MEDS ORDERED: KLOR-CON PO SCH (09:00)
--- NOTE | 2019-05-06 14:26 | CARDIOLOGY PROGRESS NOTE ---
DATE: 05/06/2019 The patient will be discharged today. CHIEF COMPLAINT: Irregular heartbeat, palpitations. SUBJECTIVE: Mr. Briseno is doing better. He remains in sinus rhythm. His EKG today shows sinus rhythm, rate 89 beats per minute, [place] 164, QRS 72 msec. That was done at 06:44 a.m. Minor nonspecific T wave noted. OBJECTIVE: Vital signs: His blood pressure today 187/87, temperature 98.8, pulse 87, respirations 16. General: He is awake, alert, in no distress. HEENT: Unremarkable. Chest: Sounds clear to auscultation and percussion. Heart: Sounds are regular and rhythmic. No gallop or murmur. Abdomen: Nontender. Extremities: Showed no edema. BLOOD WORK: Sodium 145, potassium 3.3, BUN 13, creatinine 1.0. Phosphorus 2.8. Calcium 9.6. IMPRESSION: 1. Patient who presented with paroxysmal atrial fibrillation which has converted to sinus rhythm on sotalol. 2. Patient with primary aldosteronism. That has led to chronic severe hypertension as well as chronic hypokalemia. Low potassium. 3. Chronic diastolic dysfunction with enlargement of left atrium. 4. Diabetes mellitus type 2. RECOMMENDATIONS: At this time, the patient seems to be much more stable. We have already discussed with the Primary service about the referral of this patient to Endocrinology service at [facility] for the specific opinion regarding his unusual primary hyperaldosteronism. In his case, the CT of the abdomen with and without contrast showed bilateral enlargement of the adrenal glands with adenomas. We are hoping to be able to refer him to Dr. Rupinder Mixon or Dr. Sykes. Hopefully, that will be accomplished in the next few days and the patient will receive definitive therapy. I will see the patient in my office in 1 month. cc: Wai Dobson MD
--- NOTE | 2019-05-06 14:28 | PROVIDER PROGRESS NOTE ---
Progress Note Subjective: He denies any uremic complaints and expects to be discharged soon. Objective: temperature 98.8, pulse 87, respiration 16, blood pressure 187/87, 02 sat 95% on room air. General: -Luxembourger male lying in bed in no acute distress. Skin: warm and dry Neck: supple, no jvd observed Cardiovascular: s1, s2 split, s4 regular rate and rhythm. No murmur or gallop Respiratory: clear bilaterally with equal air excursion Abdomen: soft, nontender, nondistended, bowel sounds active : non inspected Extremities: no clubbing, cyanosis, or edema noted. Neurological: alert and oriented to person, place, and time Labs: WBC 16.8, hemoglobin 12.3, hematocrit 37.6, sodium 145, potassium 3.3, chloride 108, carbon dioxide 25, BUN 13, creatinine 1.0. Albumin 3.6. Intake 2760, output 2575. Impression: Acute kidney injury. Likely acute tubular necrosis related to IV contrast. His BUN and Creatinine have improved with gentle hydration. Excellent urine output. No indications for renal replacement therapy noted. He will follow up in our office when he is discharged. Hyperaldosteronism with bilateral adrenal masses. Waiting on AM cortisol and 24 hour urine results. Blood pressure. Above target. Added hydralazine PO TID. Fluid volume. Euvolemic. Anemia. Stable. Hypokalemia. PO replacement ordered. Acid base balance. Stable. Medication review. Hydralazine changed to BID by primary.
--- NOTE | 2019-05-06 21:37 | DISCHARGE SUMMARY ---
ADMISSION DATE: 05/03/2019 DISCHARGE DATE: 05/06/2019 DISCHARGE DISPOSITION: Home. DISCHARGE CONDITION: Hemodynamically stable. He is hypertensive and adjustments have been made into his blood pressure regimen. He is provided detailed discharge instructions including adrenal adenoma, following up with logistics specialist and regular doctor pending blood tests and urine tests and low potassium. All of his questions have been answered. DISCHARGE DIAGNOSIS: 1. Atrial fibrillation with rapid ventricular rate leading to palpation and shortness of breath. 2. Mild acute pulmonary edema. 3. Fall because of lightheadedness prior to presentation. 4. Hypokalemia. 5. 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 6. Constipation. OTHER DIAGNOSES: 1. History of essential hypertension. 2. History of paroxysmal atrial fibrillation on home Xarelto. 3. History of diabetes mellitus type 2 non-insulin dependent. 4. Prior history of hypokalemia. DISCHARGE MEDICATIONS: 1. Hydralazine 100 mg b.i.d. 2. Metformin 1000 mg b.i.d. 3. Losartan 50 mg daily. 4. Xarelto 20 mg daily. 5. Spironolactone 50 mg b.i.d. 6. Potassium chloride 20 mEq daily. 7. Amlodipine 10 mg daily. 8. Sotalol 80 mg b.i.d. PENDING LABS AT THE TIME OF DISCHARGE: 1. 24 hour urinary aldosterone. 2. Serum aldosterone. 3. Serum renin. 4. Fractionated serum metanephrine. 5. 24 hour urinary cortisol. VITALS: At the time of discharge temperature 98.8 degrees, pulse 87, respiratory 16, blood pressure 187/87, saturating 95% on room air. PHYSICAL EXAMINATION: He is not in acute distress. Oral cavity is moist. Air entry bilaterally equal. No wheeze, rhonchi, crackles. S1, S2 normal. No murmur or gallop. Abdomen soft, nontender. No lower extremity edema. He denies any headache, lightheadedness, shortness of breath. At the time of discharge WBC 16,000, hemoglobin 12.3, platelet 340,000. Potassium 3.3 which is currently being repleted, BUN 13, creatinine 1, ProBNP of 2300. Cortisol random is 9.4. Micro at the time of discharge none. IMAGING: Chest x-ray on presentation had cardiomegaly. Abdomen and pelvis CT performed for adrenal hyperplasia versus adrenal mass had bilateral adrenal adenoma, enlarged prostate, constipation, moderate-sized pericardial effusion. Electrocardiogram on May 06 had normal sinus rhythm. HOSPITAL COURSE SUMMARY: Mr. Briseno is a 58-year-old man who came in with chief complaints of palpitation, shortness of breath and lightheadedness. When he went to the [facility] he was found to have atrial fibrillation with rapid ventricular response. He was given intravenous Cardizem and was transferred to [facility] for further management. He did have prior history of paroxysmal atrial fibrillation and was taking sotalol and rivaroxaban. Cardiology was consulted and patient's sotalol dose was increased following which his heart rate became normal sinus rhythm. His hypokalemia workup was initiated and a CT scan of abdomen and pelvis had detected bilateral adrenal adenoma which was with intravenous contrast. Apparently, he also had elevated aldosterone to renin activity in 2016 but he did not have a followup of that. At the moment 24 hour urinary cortisol, 24 hour urine aldosterone, serum aldosterone, serum metanephrines have been ordered which are pending. Patient was advised to have a followup with his regular physician. TIME SPENT: More than 30 minutes. cc: Armando Childress MD
== END 2019-05-06 14:01 | disposition home or self-care (01) | DRG 308 ==
LOC: P.ED 22:47 → 2N 22:47 → SUATTDRO 05-03 01:06 → OBSVTOIN 05-03 01:06
PROVIDERS: ATTEND Internal Medicine